=== PATIENT | male | born 1975 | race Hispanic/Latino ===

== ENCOUNTER → 2020-06-30 | Outpatient (CLI) | payer BC, MEDICARE ==
[~2020-06-30] MED LIST: REGADENOSON 0.4 MG/5 ML PF SYG IVP SCH
== END | disposition home or self-care (01) ==
LOC: SHCH 08:50
PROVIDERS: ATTEND Internal Medicine Cardiovascular Disease
DX: Z01.810 Encounter for preprocedural cardiovascular examination (principal); I10 Essential (primary) hypertension
CPT/HCPCS: 78452; 93017; 96374; A9500 ×2; J2785

== ENCOUNTER 2020-07-20 05:57 | Day surgery (SDC) | payer BC, MEDICARE ==
[2020-07-18 14:50] LABS: EOSINOPHILS % (AUTO) 16.3 % (0.0-8.0); HEMATOCRIT 31.9 % (42-54); LYMPHOCYTES % (AUTO) 19.8 % (21.0-51.0); MEAN CORPUSCULAR HEMOGLOBIN 31.3 pg (27.0-33.0); MEAN CORPUSCULAR HGB CONC 31.3 g/dL (32.0-36.0); MONOCYTES % (AUTO) 9.1 % (3.0-13.0); NEUTROPHILS % (AUTO) 53.6 % (40.0-77.0); PLATELET COUNT (AUTO) 87 K/uL (130-400); RED BLOOD CELL COUNT(AUTO) 3.19 MIL/uL (4.50-6.20); RED CELL DISTRIBUTION WIDTH 15.3 % (11.0-15.5); WHITE BLOOD COUNT (AUTO) 5.2 K/uL (4.8-10.8)
[2020-07-18 14:50] LABS: APPEARANCE,URINE Clear (CLEAR); BILIRUBIN,URINE Negative (NEGATIVE); COLOR,URINE Yellow (YELLOW); GLUCOSE, URINE (UA) 250 mg/dL (NEGATIVE); KETONES,URINE Negative (NEGATIVE); LEUKOCYTE ESTERASE ,URINE Negative (NEGATIVE); NITRATE,URINE Negative (NEGATIVE); OCCULT BLOOD,URINE Moderate (NEGATIVE); PH,URINE >=9.0 (5.0-8.0); PROTEIN,URINE 300 mg/dL (NEGATIVE); UROBILINOGEN,URINE 0.2 mg/dL (0.2-1.0)
[2020-07-18 14:58] LABS: POTASSIUM 5.1 mmol/L (3.5-5.1)
[2020-07-18 15:00] LABS: CREATININE 11.3 mg/dL (0.5-1.5)
[2020-07-18 15:01] LABS: INR 1.11 (0.85-1.15); PARTIAL THROMBOPLASTIN TIME 28.9 SEC (26.3-35.5); PROTHROMBIN TIME 11.9 SEC (9.6-11.6)
[2020-07-18 15:10] LABS: BACTERIA,URINE Few /HPF (None Seen)
[2020-07-18 15:13] LABS: SQUAMOUS EPITHELIAL CELL,UR 0-2 /HPF (0-2)
[2020-07-18 15:14] LABS: MUCUS,URINE Few LPF (None Seen)
[2020-07-19 11:40] VITALS: BP 143/74
--- NOTE | 2020-07-19 16:33 | NUR ---
ABNORMAL LABS: REPORTED ABNORMAL CBC/BMP TO DR VENTURA. ORDERS TO REDRAW CBC IN AM.
[2020-07-20] VITALS (9 sets, daily range): BP systolic 123–153; BP diastolic 66–80
[~2020-07-20] VITALS: Ht 180.3 cm; Wt 109.1 kg
[~2020-07-20 05:57] MED LIST changes: +LISI2.5T2 PO; +METO100T14 PO; +PARO-37 PO; -REGADENOSON 0.4 MG/5 ML PF SYG IVP SCH
[2020-07-20 06:29] LABS: BASOPHILS % (AUTO) 0.9 % (0.0-5.0); EOSINOPHILS % (AUTO) 16.2 % (0.0-8.0); HEMATOCRIT 32.5 % (42-54); LYMPHOCYTES % (AUTO) 23.9 % (21.0-51.0); MEAN CORPUSCULAR HEMOGLOBIN 31.5 pg (27.0-33.0); MEAN CORPUSCULAR HGB CONC 31.7 g/dL (32.0-36.0); MEAN CORPUSCULAR VOLUME 99.4 fL (79-99); MONOCYTES % (AUTO) 8.8 % (3.0-13.0); PLATELET COUNT (AUTO) 85 K/uL (130-400); RED BLOOD CELL COUNT(AUTO) 3.27 MIL/uL (4.50-6.20); WHITE BLOOD COUNT (AUTO) 4.7 K/uL (4.8-10.8)
--- NOTE | 2020-07-20 06:30 | NUR ---
preop pt arrived ambulatory with sister at side. pt and relative oriented to room and call light. pt has multiple scratches to general body, has scab to left nostril and has large rt abdominal hernia. pt connected to ekg monitor. will continue to monitor pt.
[2020-07-20] MEDS ORDERED: SODIUM CHLORIDE 0.9% 1000ML 1,000 ML IV ONE (07:06)
[2020-07-20] MEDS ORDERED: NITROGLYCERIN 2 MG/VIAL VIAL IV ONE (07:14)
[2020-07-20] MEDS ORDERED: HEPARIN SODIUM 1000UNIT/ML 10ML VIAL ONE (07:14)
[2020-07-20] MEDS ORDERED: NICARDIPINE HCL 25 MG/10 ML ML IV ONE (07:14)
[2020-07-20] MEDS ORDERED: FENTANYL CITRATE PF 50 MCG/1 ML 2ML VIAL ONE (07:15)
[2020-07-20] MEDS ORDERED: MIDAZOLAM HCL 1 MG/ML 2ML VIAL ONE (07:15)
[2020-07-20] MEDS ORDERED: IOHEXOL 350 MG/ML 100ML INFUS..BTL IV ONE (07:15)
[2020-07-20] MEDS ORDERED: IOHEXOL-350 50ML VIAL IV ONE (07:15)
[2020-07-20] MEDS ORDERED: LIDOCAINE HCL 2% 20ML ONE (07:15)
--- NOTE | 2020-07-20 07:15 | NUR ---
report called dr hogan and reported cbc results. no new orders given will still proceed
--- NOTE | 2020-07-20 08:50 | NUR ---
POST CATH RECEIVED PT AND REPORT FROM LORENA JARA. PT IN SUPINE POSITION IN NO DISTRESS. PT GIVEN POST ANGIOGRAM INSTRUCTIONS. CALL LIGHT WITH IN REACH. PT CONNECTED TO [employer]. WILL CONTINUE TO MONITOR PT. SISTER AT BEDSIDE
--- NOTE | 2020-07-20 09:05 | NUR ---
MD DR VENTURA SPOKE TO PT AND SISTER. BOTH VOICED UNDERSTANDING
--- NOTE | 2020-07-20 11:04 | NUR ---
REPORT REPORT GIVEN TO MIESHA LOPEZ RN FOR CONTINUATION OF CARE.
== END 2020-07-20 12:30 | disposition home or self-care (01) ==
LOC: DAH 05:57
PROVIDERS: ATTEND Internal Medicine Cardiovascular Disease
DX: I25.118 Atherosclerotic heart disease of native coronary artery with other forms of angina pectoris (principal); I12.0 Hypertensive chronic kidney disease with stage 5 chronic kidney disease or end stage renal disease; N18.6 End stage renal disease; R06.09 Other forms of dyspnea; Z94.0 Kidney transplant status; Z99.2 Dependence on renal dialysis; Z79.01 Long term (current) use of anticoagulants; Z79.899 Other long term (current) drug therapy
CPT/HCPCS: 36415 ×2; 71045; 80048; 81001; 85025 ×2; 85610; 85730; 93005; 93458; A4215; A4216; A4221; A4222; A4223 ×3; A4606; A4663; C1760; C1894 ×2; J1644; J2250; J3010; J3490 ×3; J7030; Q9965; Q9967; 99156; 99157